=== PATIENT | male | born 1990 | race Caucasian/White ===

== ENCOUNTER → 2019-11-11 | Outpatient (CLI) | payer OTHER ==
--- NOTE | 2019-11-11 09:33 | RADIOLOGY REPORT (SQ) ---
EXAM DESCRIPTION: FINGERS RIGHT COMPLETED DATE/TIME: 11/11/2019 9:25 am REASON FOR STUDY: STRAIN EXTENSOR MUSC/FASC/TEND R IDX FNGR AT FORARM LV, INIT S56.411A STRAIN EXTE NSOR MUSC/FASC/TEND R IDX FNGR AT FORARM COMPARISON: None. NUMBER OF VIEWS: Three views. TECHNIQUE: AP, lateral, and oblique images acquired of the right second finger. LIMITATIONS: None. FINDINGS: MINERALIZATION: Normal. BONES: No acute fracture or dislocation. No worrisome bone lesions. SOFT TISSUES: No soft tissue swelling. No foreign body. OTHER: No other significant finding. IMPRESSION: NO RADIOGRAPHIC EVIDENCE OF ACUTE INJURY. COMMENT: SITE OF TRAUMA/COMPLAINT MARKED/STAMP COMPLETED: YES. TECHNICAL DOCUMENTATION: JOB ID: [id number] 2010 [employer]- All Rights Reserved Reading location - IP/workstation name: [email or web address]
== END ==
LOC: RAD 09:09
PROVIDERS: ATTEND Family Medicine
DX: S56.411A Strain of extensor muscle, fascia and tendon of right index finger at forearm level, initial encounter (principal); X58.XXXA Exposure to other specified factors, initial encounter; Y93.9 Activity, unspecified; Y92.9 Unspecified place or not applicable